=== PATIENT | female | born 1950 | race Caucasian/White ===

== ENCOUNTER 2018-07-23 12:28 | Emergency (ER) | payer MEDICARE, OTHER ==
[2018-07-23 12:43] VITALS: RESP 18
[2018-07-23] MEDS ORDERED: MORPHINE SULFATE 4 MG/ML SYRINGE IVP STA (12:55)
[2018-07-23] MEDS ORDERED: SODIUM CHLORIDE 0.9% 1,000 ML IV STA (12:55)
[2018-07-23] MEDS ORDERED: methylPREDNISolone SOD SUCCI 250 MG in SODIUM CHLORIDE 0.9% 100 ML IVPB STA (12:55)
[2018-07-23] MEDS ORDERED: diphenhydrAMINE 50 MG/ML 1 ML VIAL IVP STA (12:55)
[2018-07-23] MEDS ORDERED: METOCLOPRAMIDE 5 MG/ML 2 ML VIAL IVP STA (12:55)
--- NOTE | 2018-07-23 12:56 | ED ---
Headache HPI - General Chief Complaint: Headache Stated Complaint: Headache, dizzy Source: RN notes reviewed, old records reviewed Mode of arrival: ambulatory Limitations: no limitations - History of Present Illness Initial Comments: This is a 67-year-old female to the ER for evaluation. Patient presents today for evaluation regards to headache. Patient is suffering for headache 3 weeks. does have entering history of peripheral arterial disease high blood pressure. No prior history of headaches prior to having this current headache began been going on for 3 weeks. No trauma. No fevers. About 2 weeks of 3 weeks ago patient did have influenza diagnosis which did resolve. Patient does have nausea with headache. MD Complaint: headache -: week(s) (4) Onset Description: at rest Location: frontal, temporal, occipital Severity: moderate Severity scale (1-10): 5 Quality: full, constant Consistency: constant Improves With: nothing Worsens With: none Context: recent URI (Patient did have influenza) Associated Symptoms: nausea, vomiting Treatments Prior to Arrival: none - Related Data Home Medications Medication Instructions Recorded Confirmed Aspirin EC [Ecotrin Low Dose] 81 mg PO DAILY 07/23/18 07/23/18 Baclofen [Lioresal] 10 mg PO Q6H PRN 07/23/18 07/23/18 Cephalexin [Keflex] 500 mg PO Q8HR 07/23/18 07/23/18 Cholecalciferol [Vitamin D3] 3,000 unit PO DAILY 07/23/18 07/23/18 Clopidogrel [Plavix] 75 mg PO DAILY 07/23/18 07/23/18 Dextroamphetamine/Amphetamine 15 mg PO BID 07/23/18 07/23/18 [Adderall] HYDROcodone/APAP 7.5-325MG [[place] 1 tab PO QID PRN 07/23/18 07/23/18 7.5-325] Allergies Allergy/AdvReac Type Severity Reaction Status Date / Time meperidine [From Demerol] Allergy Unknown Verified 07/23/18 13:02 Review of Systems ROS Statement: Those systems with pertinent positive or pertinent negative responses have been documented in the HPI. ROS Other: All systems not noted in ROS Statement are negative. Past Medical History Past Medical History: Hyperlipidemia History of Any Multi-Drug Resistant Organisms: None Reported Past Surgical History: Hysterectomy, Tubal Ligation Additional Past Surgical History / Comment(s): stent in leg, lumpectomy, ankle surgery, breast surgery, shoulder surgery, eye surgery Past Psychological History: No Psychological Hx Reported Smoking Status: Never smoker Past Alcohol Use History: Occasional Past Drug Use History: None Reported General Exam - General Exam Comments Initial Comments: NIH of 0, no neurological findings Limitations: no limitations General appearance: alert, in no apparent distress Head exam: Present: atraumatic, normocephalic, normal inspection Eye exam: Present: normal appearance, PERRL, EOMI. Absent: scleral icterus, conjunctival injection, periorbital swelling ENT exam: Present: normal exam, mucous membranes moist Neck exam: Present: normal inspection. Absent: tenderness, meningismus, lymphadenopathy Respiratory exam: Present: normal lung sounds bilaterally. Absent: respiratory distress, wheezes, rales, rhonchi, stridor Cardiovascular Exam: Present: regular rate, normal rhythm, normal heart sounds. Absent: systolic murmur, diastolic murmur, rubs, gallop, clicks GI/Abdominal exam: Present: soft, normal bowel sounds. Absent: distended, tenderness, guarding, rebound, rigid Extremities exam: Present: normal inspection, full ROM, normal capillary refill. Absent: tenderness, pedal edema, joint swelling, calf tenderness Back exam: Present: normal inspection Neurological exam: Present: alert, oriented X3, CN II-XII intact Psychiatric exam: Present: normal affect, normal mood Skin exam: Present: warm, dry, intact, normal color. Absent: rash Course Vital Signs 07/23/18 07/23/18 07/23/18 12:38 14:34 15:28 Temperature 97.5 F L 98.3 F 98.0 F Pulse Rate 79 74 78 Respiratory 18 18 18 Rate Blood Pressure 156/78 166/83 173/77 O2 Sat by Pulse 100 96 99 Oximetry - Reevaluation(s) Reevaluation #1: 07/23/18 14:50 Medical records thoroughly reviewed Reevaluation #2: 07/23/18 14:51 Patient's headache is mildly improved currently Reevaluation #3: 07/23/18 16:54 Family spoken with at length regarding diagnosis. Questions are answered - Consultations Consultation #1: (Dr. Howard at [facility] was acceptable for transfer Medical Decision Making - Medical Decision Making 67 female the ER for evaluation. 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, patient to be transferred to [facility] for neurosurgery as well as oncologic evaluation and treatment - Lab Data Result diagrams: 07/23/18 13:55 07/23/18 13:55 Lab Results 07/23/18 07/23/18 07/23/18 Range/Units 13:55 13:55 13:55 WBC 9.8 (3.8-10.6) k/uL RBC 4.83 (3.80-5.40) m/uL Hgb 13.9 (11.4-16.0) gm/dL Hct 41.8 (34.0-46.0) % MCV 86.7 (80.0-100.0) fL MCH 28.8 (25.0-35.0) pg MCHC 33.2 (31.0-37.0) g/dL RDW 13.5 (11.5-15.5) % Plt Count 316 (150-450) k/uL Neutrophils % 75 % Lymphocytes % 18 % Monocytes % 4 % Eosinophils % 1 % Basophils % 1 % Neutrophils # 7.4 (1.3-7.7) k/uL Lymphocytes # 1.7 (1.0-4.8) k/uL Monocytes # 0.4 (0-1.0) k/uL Eosinophils # 0.1 (0-0.7) k/uL Basophils # 0.0 (0-0.2) k/uL PT 9.7 (9.0-12.0) sec INR 0.9 (<1.2) APTT 22.1 (22.0-30.0) sec Sodium 140 (137-145) mmol/L Potassium 4.2 (3.5-5.1) mmol/L Chloride 106 (98-107) mmol/L Carbon Dioxide 25 (22-30) mmol/L Anion Gap 9 mmol/L BUN 16 (7-17) mg/dL Creatinine 0.50 L (0.52-1.04) mg/dL Est GFR (CKD-EPI)AfAm >90 (>60 ml/min/1.73 sqM) Est GFR (CKD-EPI)NonAf >90 (>60 ml/min/1.73 sqM) Glucose 97 (74-99) mg/dL Calcium 9.7 (8.4-10.2) mg/dL Total Bilirubin 0.7 (0.2-1.3) mg/dL AST 30 (14-36) U/L ALT 51 (9-52) U/L Alkaline Phosphatase 116 (38-126) U/L Troponin I (0.000-0.034) ng/mL Total Protein 7.9 (6.3-8.2) g/dL Albumin 4.4 (3.5-5.0) g/dL Urine Color Urine Appearance (Clear) Urine pH (5.0-8.0) Ur Specific [place] (1.001-1.035) Urine Protein (Negative) Urine Glucose (UA) (Negative) Urine Ketones (Negative) Urine Blood (Negative) Urine Nitrite (Negative) Urine Bilirubin (Negative) Urine Urobilinogen (<2.0) mg/dL Ur Leukocyte Esterase (Negative) 07/23/18 07/23/18 Range/Units 13:55 13:55 WBC (3.8-10.6) k/uL RBC (3.80-5.40) m/uL Hgb (11.4-16.0) gm/dL Hct (34.0-46.0) % MCV (80.0-100.0) fL MCH (25.0-35.0) pg MCHC (31.0-37.0) g/dL RDW (11.5-15.5) % Plt Count (150-450) k/uL Neutrophils % % Lymphocytes % % Monocytes % % Eosinophils % % Basophils % % Neutrophils # (1.3-7.7) k/uL Lymphocytes # (1.0-4.8) k/uL Monocytes # (0-1.0) k/uL Eosinophils # (0-0.7) k/uL Basophils # (0-0.2) k/uL PT (9.0-12.0) sec INR (<1.2) APTT (22.0-30.0) sec Sodium (137-145) mmol/L Potassium (3.5-5.1) mmol/L Chloride (98-107) mmol/L Carbon Dioxide (22-30) mmol/L Anion Gap mmol/L BUN (7-17) mg/dL Creatinine (0.52-1.04) mg/dL Est GFR (CKD-EPI)AfAm (>60 ml/min/1.73 sqM) Est GFR (CKD-EPI)NonAf (>60 ml/min/1.73 sqM) Glucose (74-99) mg/dL Calcium (8.4-10.2) mg/dL Total Bilirubin (0.2-1.3) mg/dL AST (14-36) U/L ALT (9-52) U/L Alkaline Phosphatase (38-126) U/L Troponin I <0.012 (0.000-0.034) ng/mL Total Protein (6.3-8.2) g/dL Albumin (3.5-5.0) g/dL Urine Color Yellow Urine Appearance Clear (Clear) Urine pH 5.5 (5.0-8.0) Ur Specific [place] 1.024 (1.001-1.035) Urine Protein Trace H (Negative) Urine Glucose (UA) Negative (Negative) Urine Ketones Negative (Negative) Urine Blood Negative (Negative) Urine Nitrite Negative (Negative) Urine Bilirubin Negative (Negative) Urine Urobilinogen <2.0 (<2.0) mg/dL Ur Leukocyte Esterase Negative (Negative) - EKG Data -: EKG Interpreted by Me (EKG shows sinus rhythm rate of 73, IA 126, QRS 86, QTc 436) - Radiology Data Radiology results: report reviewed (CT brain CTA had not shows positive brain tumor intra-axial), image reviewed Disposition Clinical Impression: Brain tumor Disposition: OTHER INSTITUTION NOT DEFINED Condition: Serious Is patient prescribed a controlled substance at d/c from ED?: No Referrals: Raleigh Abbasi MD [Primary Care Provider] - 1-2 days - Out of Hospital Transfer - Req. Specs Out of Hospital Transfer - Requested Specifics: Other Emergency Center ([facility])
[2018-07-23 14:13] LABS: Basophils % (A) 1 %; Eosinophils # (A) 0.1 k/uL (0-0.7); Eosinophils % (A) 1 %; HCT 41.8 % (34.0-46.0); HGB 13.9 gm/dL (11.4-16.0); Lymphocytes # (A) 1.7 k/uL (1.0-4.8); Lymphocytes % (A) 18 %; MCH 28.8 pg (25.0-35.0); MCHC 33.2 g/dL (31.0-37.0); MCV 86.7 fL (80.0-100.0); Mean Platelet Volume 7.4; Monocytes # (A) 0.4 k/uL (0-1.0); Monocytes % (A) 4 %; Neutrophils # (A) 7.4 k/uL (1.3-7.7); Neutrophils % (A) 75 %; Platelet Count 316 k/uL (150-450); RBC 4.83 m/uL (3.80-5.40); RDW 13.5 % (11.5-15.5); WBC 9.8 k/uL (3.8-10.6)
[2018-07-23 14:14] LABS: Appearance,Urine Clear (Clear); Bilirubin,Urine Negative (Negative); Blood,Urine Negative (Negative); Color,Urine Yellow; Glucose,Urine (UA) Negative (Negative); Ketones,Urine Negative (Negative); Leukocyte Esterase,Urine Negative (Negative); Nitrite,Urine Negative (Negative); PH, Urine 5.5 (5.0-8.0); Protein,Urine Trace (Negative); Specific Gravity,Urine 1.024 (1.001-1.035); Urobilinogen,Urine <2.0 mg/dL (<2.0)
[2018-07-23 14:21] LABS: INR 0.9 (<1.2); Partial Thromboplastin Time 22.1 sec (22.0-30.0); Prothrombin Time 9.7 sec (9.0-12.0)
[2018-07-23 14:31] LABS: ALT 51 U/L (9-52); AST 30 U/L (14-36); Albumin 4.4 g/dL (3.5-5.0); Alkaline Phosphatase 116 U/L (38-126); Anion Gap 9 mmol/L; Blood Urea Nitrogen 16 mg/dL (7-17); Calcium 9.7 mg/dL (8.4-10.2); Carbon Dioxide 25 mmol/L (22-30); Chloride 106 mmol/L (98-107); Glucose 97 mg/dL (74-99); Potassium 4.2 mmol/L (3.5-5.1); Sodium 140 mmol/L (137-145); Total Bilirubin 0.7 mg/dL (0.2-1.3); Total Protein 7.9 g/dL (6.3-8.2)
--- NOTE | 2018-07-23 15:28 | CT ---
EXAMINATION TYPE: CT brain wo con for TPA DATE OF EXAM: 07/23/2018 COMPARISON: None HISTORY: Headache x2 weeks. CT DLP: 1320 mGycm Automated exposure control for dose reduction was used. FINDINGS: There is no mass effect nor midline shift. There is no sign of intracranial hemorrhage. Ventricles ar e slightly enlarged. There is hypodensity in the white matter in the cerebellar hemispheres. There is loss of sulci in the cerebellum. There is an approximate 3.7 cm high attenuation mass in the posteri or fossa in the midline. This is in the posterior cerebellum. 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 THERE IS WHITE MATTER EDEMA IN THE POSTERIOR FOSSA IN THE CE REBELLUM AND SLIGHT EFFACEMENT OF THE FOURTH VENTRICLE. THERE IS EVIDENCE OF A 3.6 CM ROUNDED HIGHER ATTENUATION MASS IN THE POSTERIOR FOSSA IN THE MIDLINE AND TOWARDS THE LEFT SIDE CONSISTENT WITH A TU MOR.
--- NOTE | 2018-07-23 16:04 | CT ---
EXAMINATION TYPE: CT angio head neck DATE OF EXAM: 07/23/2018 HISTORY: Headache x2 weeks. COMPARISON: None CT DLP: 391.8 mGycm. Automated Exposure Control for Dose Reduction was Utilized. TECHNIQUE: CTA scan of the neck is performed with IV Contrast, patient injected with 65ml mL of Isov ue 370, axial images are obtained, coronal and sagittal reformatted images are reviewed. Three-D lucien nstructed images are created on an independent workstation and reviewed. FINDINGS: There is normal branching pattern of the great vessels on the aortic arch. There is bilateral patency of the subclavian arteries. There is arterial flow in the common internal and external carotid arter ies bilaterally. There is arterial flow in both vertebral arteries. There is moderate calcification a t the left carotid artery bifurcation. There is estimated within 50% stenosis of the proximal left in ternal carotid artery. There is no evidence of stenosis at the right internal carotid artery. There i s no evidence of carotid or vertebral artery aneurysm or dissection. There is arterial flow in the anterior middle and posterior cerebral arteries. There is arterial flow in the vertebral basilar artery system. There is hypodensity in the white matter of the cerebellum. There is a posterior 3.9 x 2.6 cm mass in the cerebellum in the midline and towards the left side. Th ere is some effacement of the fourth ventricle. There is mild enlargement of the lateral ventricles a nd third ventricle. There is no evidence of intracranial aneurysm or neovascularity. There is normal contrast opacificati on of the venous sinuses. 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 Mild hydrocephalus. No intracrania l aneurysm or neovascularity. No intracranial arterial stenosis.
[2018-07-23 17:22] VITALS: BP 176/80; PULSE 70; TEMP 98
== END 2018-07-23 17:21 | disposition short-term general hospital (02) ==
LOC: EC 12:28
DX: D49.6 Neoplasm of unspecified behavior of brain (principal); R29.700 NIHSS score 0; Z88.5 Allergy status to narcotic agent; Z79.02 Long term (current) use of antithrombotics/antiplatelets; Z79.82 Long term (current) use of aspirin; Z79.899 Other long term (current) drug therapy; Z86.79 Personal history of other diseases of the circulatory system; Z96.698 Presence of other orthopedic joint implants
CPT/HCPCS: 36415; 93005; 80053; 84484; 85025; 85610; 85730; 81003; 70496; 70450; 70498; 99285; 96365; 96366; 96375 ×3; J2270; J1200; J2765; J2930; Q9967